=== PATIENT | female | born 1980 | race Two or more races ===

== ENCOUNTER → 2018-12-21 12:36 | Outpatient (CLI) | payer BC, SELFPAY ==
--- NOTE | 2018-12-21 12:52 | RAD_ITS ---
STUDY: X-RAY CHEST REASON FOR EXAM: Female, 38 years old. History of tuberculin. TECHNIQUE: Single frontal view of the chest. COMPARISON: None. FINDINGS: Bilateral breast implants incidentally noted. The lungs are clear and expanded. There is no demonstrated pleural abnormality. Normal size heart. Normal mediastinum and [place]. Normal visualized pulmonary arteries. Normal visualized aortic arch and descending thoracic aorta. Subtle right lateral wedging of the T11 vertebra is suggested. There is no significant scoliosis. Normal visualized ribs, clavicles, and shoulders. There is no demonstrated abnormality of the visualized soft tissue structures of the upper abdomen. RAD/Chest 1 View IMPRESSION: No acute cardiopulmonary disease. There is no sign of active tuberculosis. Electronically Signed: Oneil Franklin MD at 14:04 EDT , Service support ,
== END ==
DX: Z86.11 Personal history of tuberculosis (principal)
CPT/HCPCS: 71045